=== PATIENT | female | born 1990 | race African-American/Black ===

== ENCOUNTER → 2024-03-01 | Emergency (ER) | payer OTHER ==
[2024-03-01 12:09] VITALS: BP 140/88; PULSE 90; RESP 18; TEMP 98.6; BMI 18.3
[2024-03-01 13:15] LABS: BASO % 0.6 % (0-2.0); HEMATOCRIT 39.4 % (32.4-45.2); HEMOGLOBIN 12.7 GM/dL (10.7-15.3); LYMPH % 25.1 % (8-40); MCH 26.1 pg (25.7-33.7); MCHC 32.3 g/dl (32.0-36.0); MEAN CELL VOLUME 80.8 fl (80-96); MEAN PLT VOLUME 7.9 fl (7.5-11.1); MONO % 9.1 % (3.8-10.2); NEUT % 65.2 % (42.8-82.8); PLATELET COUNT 232 10^3/uL (134-434); RBC 4.87 M/mm3 (3.60-5.2); RDW 15.3 % (11.6-15.6); WHITE BLOOD COUNT 4.3 K/mm3 (4.0-10.0)
[2024-03-01 13:46] LABS: POTASSIUM 3.6 mmol/L (3.5-5.1)
[2024-03-01 13:47] LABS: CALCIUM 8.7 mg/dL (8.5-10.1)
[2024-03-01 13:48] LABS: ALBUMIN 3.4 g/dl (3.4-5.0); BLOOD UREA NITROGEN 7.1 mg/dL (7-18)
[2024-03-01 13:51] LABS: CREATININE 0.7 mg/dL (0.55-1.3)
[2024-03-01 13:53] LABS: BILIRUBIN,TOTAL 0.5 mg/dL (0.2-1)
== END | disposition left against medical advice (07) ==
LOC: JERFT 11:45
DX: S80.869A Insect bite (nonvenomous), unspecified lower leg, initial encounter (principal); R52 Pain, unspecified; R68.83 Chills (without fever); W57.XXXA Bitten or stung by nonvenomous insect and other nonvenomous arthropods, initial encounter; Z20.822 Contact with and (suspected) exposure to COVID-19
CPT/HCPCS: 0241U-QW; 36415; 80053; 85025; 86618; 99283-25